=== PATIENT | female | born 1995 | race Caucasian/White ===

== ENCOUNTER 2018-10-03 14:41 | Inpatient (IN) | payer MEDICAID ==
[~2018-10-03] VITALS: Ht 157.5 cm; Wt 68.9 kg
[2018-10-03 14:49] VITALS: Ht 157.5 cm; Wt 68.9 kg
--- NOTE | 2018-10-03 16:40 | NUR ---
PT. IN ED WITH C/O LOWER ABDOMINAL PAIN AND NAUSEA X2DAYS. REPORTS PAIN IS WORSE WITH MOVEMENT AND WALKING. DENIES EMESIS OR FEVERS. REPORTS SHE WAS SEEN IN A HEALTH CLINIC EARLIER TODAY AND WAS TOLD TO COME TO ED FOR POSSIBLE APPENDICITIS. PT. AAOX4, TALKING AND RESPONDING APPROPRIETLY, SOME MODERATE ABDOMINAL PAIN WITH MOVEMENT. BOYFRIEND AT BEDSIDE. WILL CONTINUE TO MONITOR.
--- NOTE | 2018-10-03 17:03 | NUR ---
AT BEDSIDE WITH DR. ROGERS TO [facility] FLOOR INSTALLER PELVIC EXAM.
[2018-10-03 17:14] LABS: BASOPHIL % 0.3 % (0-2); PLATELET COUNT 273 x10^3mcL (130-400)
[2018-10-03 17:16] LABS: CARBON DIOXIDE 23.7 mmol/L (21-32); CHLORIDE SERUM 104 mmol/L (98-107); CREATININE SERUM 0.7 mg/dL (0.6-1.0); GFR1 > 60 mL/min; GLUCOSE SERUM 92 mg/dL (74-106); POTASSIUM SERUM 3.6 mmol/L (3.5-5.1); SODIUM SERUM 141 mmol/L (136-145)
[2018-10-03 17:20] LABS: ALBUMIN 4.1 g/dL (3.4-5.0); ALKALINE PHOSPHATASE 84 U/L (46-116); ALT/SGPT 38 U/L (14-59); AST/SGOT 30 U/L (15-37); BILIRUBIN TOTAL 0.5 mg/dL (0.20-1.00); LIPASE 137 IU/L (73-393); TOTAL PROTEIN, SERUM 7.9 g/dL (6.4-8.2)
[2018-10-03 17:37] LABS: RED CELL DISTRIBUTION WIDTH 16.9 % (11.5-14.5)
--- NOTE | 2018-10-03 17:44 | NUR ---
PT. TAKEN TO XRAY DEPARTMENT BY
--- NOTE | 2018-10-03 18:01 | NUR ---
PT. BACK FROM CT. AAOX4, TALKING AND RESPONDNG APPROPRIETLY. NOT IN ANY APPARENT DISTRESS AT THIS TIME. CALL LIGHT IN REACH. BOYFRIEND AT BEDSIDE.
--- NOTE | 2018-10-03 18:53 | NUR ---
PT. AAOX4, SITTING UP TALKING WITH MOM. REPROTS LOWER ABD PAIN 3/10 THAT IS WORSE WITH MOVEMENT. NOT IN ANY APPARENT DISTRESS AT THIS TIME. CALL LIGHT IN REACH. WILL CONTINUE TO MONITOR.
--- NOTE | 2018-10-03 18:58 | NUR ---
PT. TO ULTRASOUND WITH TECH.
--- NOTE | 2018-10-03 19:05 | NUR ---
REPORT RECIEVED FROM RUPERTO DIXON. PT OFF THE FLOOR FOR US.
--- NOTE | 2018-10-03 20:17 | NUR ---
REPORT GIVEN TO JAN TO ASSUME CARE OF PT.
[2018-10-03 20:20] LABS: T3 TOTAL 1.05 ng/mL
--- NOTE | 2018-10-03 20:25 | NUR ---
RECEIVED PT FROM ED [facility]IA [facility], CAME IN DUE TO PELVIC PAIN. AAOX4. DENIES HEADACHE/DIZZINESS. NO SOB NOTED, LUNG SOUNDS CTA. DENIES CHEST PAIN/PRESSURE, SB=024. DENIES ABDOMINAL DISCOMFORT. BOWEL SOUNDS ACTIVE. STATED THAT SHE HAS 8/10 SHARP PELVIC PAIN. DENIES BURNING SENSATION ON URINATION. VOIDS. IV SITE ON THE LAC IS PATENT AND INTACT. SIDE RAILS UPX2. CALL LIGHT ON REACH. FAMILY AT BEDSIDE. ENDORSED TO PRIMARY NURSE JAN FOR CONTINUITY OF CARE
[2018-10-03 20:36] LABS: FREE T4 0.99 ng/dL (0.76-1.46); FREE THYROXINE INDEX 2.9 ug/dL (1.4-4.5); T4(THYROXINE) 8.4 ug/dL (4.7-13.3)
[2018-10-03 20:43] VITALS: BP 135/84
[2018-10-03 20:58] LABS: PHOSPHOROUS 3.7 mg/dL (2.5-4.9)
--- NOTE | 2018-10-03 22:39 | NUR ---
PT C/O LOWER ABD PAIN 05/15, WILL MEDICATE PT WITH NORCO 7.5/325MG PO.
--- NOTE | 2018-10-04 03:41 | NUR ---
PT'S IN BED WITH EYES CLOSED , PIV INTACT INFUSING WELL .
[2018-10-04 04:49] VITALS: BP 113/66
[2018-10-04 06:23] LABS: CARBON DIOXIDE 22.2 mmol/L (21-32); CHLORIDE SERUM 110 mmol/L (98-107); CREATININE SERUM 0.6 mg/dL (0.6-1.0); GFR1 > 60 mL/min; GLUCOSE SERUM 80 mg/dL (74-106); POTASSIUM SERUM 3.9 mmol/L (3.5-5.1); SODIUM SERUM 142 mmol/L (136-145)
--- NOTE | 2018-10-04 06:27 | NUR ---
NO CHANGES OF CONDITION NOTED, ALL DUE MEDS GIVEN NO REACTION NOTED, PT'S AWAKE DENY ABD PAIN AT THE MOMENT, PIV INTACT INFUSING WELL ,
[2018-10-04 06:42] LABS: BASOPHIL % 0.3 % (0-2); PLATELET COUNT 194 x10^3mcL (130-400)
--- NOTE | 2018-10-04 07:30 | NUR ---
RECEIVED PATIENT IN BED, AWAKE, ALERT AND ORIENTED. IVF INFUSING WELL TO LEFT A/C. RESP EVEN AND UNLABORED, LUNGS CLEAR ON ROOM AIR. OCCASIONAL MOIST COUGH NOTED. PER PATIENT SHE DOES NOT HAVE ANY PAIN LONG SHE IS IN BED LYING FLAT, AND WHEN SHE IS UP OOB, RT LOWER ABD PAIN IS MINIMAL AND TOLERABLE PER PATIENT. NO EDEMA NOTED. VOIDING WELL, LBM YESTERDAY PER PATIENT. WILL CONTINUE TO MONITOR. BED IN LOW POSITION AND LOCKED.
[2018-10-04 07:40] LABS: RED CELL DISTRIBUTION WIDTH 17.3 % (11.5-14.5)
[2018-10-04 08:35] VITALS: BP 111/71
--- NOTE | 2018-10-04 09:11 | NUR ---
PATIENT SITTING UP IN BED WITH VISITOR AT BEDSIDE. C/O H/A 3/10 ON THE PAIN SCALE. MEDICATED WITH TYLENOL AT THIS TIME. WILL MONITOR FOR EFFECT.
[2018-10-04 09:37] LABS: BASOPHIL % 0.8 % (0-2); PLATELET COUNT 178 x10^3mcL (130-400)
[2018-10-04 10:11] LABS: RED CELL DISTRIBUTION WIDTH 16.9 % (11.5-14.5)
--- NOTE | 2018-10-04 13:51 | NUR ---
PATIENT IS IN BED WITH FAMILY MEMBERS AT BEDSIDE. NPO ORDERED. IVF INFUSING WELL, SITE PATENT. DENIES ANY H/A AT THIS TIME. WILL CONTINUE TO MONITOR.
[2018-10-04 14:16] LABS: BASOPHIL % 0.2 % (0-2); PLATELET COUNT 193 x10^3mcL (130-400)
[2018-10-04 14:17] LABS: RED CELL DISTRIBUTION WIDTH 17.1 % (11.5-14.5)
--- NOTE | 2018-10-04 14:17 | NUR ---
PATIENT'S PLAN OF CARE WAS DISCUSSED AND REVIEWED WITH OLDER ADULT SOCIAL WORK SPECIALIST:RANJITH VARGAS. I HAVE REVIEWED THE DATA COLLECTION BY OLDER ADULT SOCIAL WORK SPECIALIST (NAME):RAJNITH VARGAS. ENTERED ON (DATE/TIME):10/04/18 I CONCUR WITH THE DATA AND ANY EXCEPTIONS OR COMMENTS ARE LISTED BELOW:
--- NOTE | 2018-10-04 14:52 | NUR ---
APPEARS TO BE RESTING WELL. IVF INFUSING WELL AT 10ML/HR ORDERED. NO FURTHER C/O H/A OR ABD PAIN AT THIS TIME. WILL CONTINUE TO MONITOR.
[2018-10-04 15:27] LABS: rbc morphology (normal/abnorm) ABNORMAL (NORMAL)
[2018-10-04 15:28] LABS: ovalocyte/elliptocyte 3+; tear drop cell (dacryocyte) 1+
[2018-10-04 16:35] VITALS: BP 126/78
--- NOTE | 2018-10-04 17:43 | NUR ---
PATIENT SITTIING UP IN BED WITH VISITORS AT BEDSIDE. AWAITING CONSULT WITH DR Migel SHAH. REMAINS NPO AT THIS TIME. PER PATIENT SHE HAS OCCASIONAL RT LOWER ABD CRAMPING. NO VAGINAL BLEEDING. PATIENT REMINDED OF THE NEED FOR URINE SPECIMEN. NO ACUTE DISTRESS NOTED. WILL CONTINUE TO MONITOR.
--- NOTE | 2018-10-04 18:12 | NUR ---
DR Virgen SHAH INTO SEE PATIENT AT THIS TIME. DIET ORDER RECEIVED.
--- NOTE | 2018-10-04 19:41 | NUR ---
RECEIVED PT IN BED AAOX4 NO ACUTE DISTRESS NOTED , PT DENY ABD PAIN AT THE MOMENT , ABD SOFT BS ACTIVE X4, LAST BM WAS TODAY , LUNG SOUNDS CTA , PIV INTACT INFUSING WELL , CALL LIGHT WITHIN PT'S REACH , WILL CON'T TO MONITOR PT .
[2018-10-04 21:05] LABS: microscopic required? NO
[2018-10-04 22:35] LABS: UA SPECIFIC GRAVITY >=1.030 (1.005-1.035); urine erythrocyte NEGATIVE (NEGATIVE)
[2018-10-04 22:55] VITALS: BP 105/63
[2018-10-05 05:16] VITALS: BP 112/69
--- NOTE | 2018-10-05 06:40 | NUR ---
NO CHANGES OF CONDITION NOTED, ALL DUE MEDS GIVEN NO REACTION NOTED, PIV INTACT INFUSING WELL , CALL LIGHT WITHIN PT'S REACH , WILL CONM'T TO MONITOR PT CLOSELY.
[2018-10-05 07:01] LABS: BASOPHIL % 0.5 % (0-2); PLATELET COUNT 175 x10^3mcL (130-400)
[2018-10-05 07:02] LABS: RED CELL DISTRIBUTION WIDTH 16.8 % (11.5-14.5)
[2018-10-05 07:03] LABS: rbc morphology (normal/abnorm) ABNORMAL (NORMAL)
[2018-10-05 07:13] LABS: CARBON DIOXIDE 23.7 mmol/L (21-32); CHLORIDE SERUM 107 mmol/L (98-107); CREATININE SERUM 0.6 mg/dL (0.6-1.0); GFR1 > 60 mL/min; GLUCOSE SERUM 77 mg/dL (74-106); MAGNESIUM 1.9 mg/dL (1.8-2.4); PHOSPHOROUS 3.6 mg/dL (2.5-4.9); SODIUM SERUM 138 mmol/L (136-145)
--- NOTE | 2018-10-05 07:35 | NUR ---
PT AAOX4. FOLLOWS COMMANDS. DENIES H/A AND DIZZINESS. NORMAL S1 S2 NOTED. RESP EVEN AND UNLABORED. LUNG SOUNDS CTA. ON R/A. ABDOMEN SOFT, TENDER, NONDISTENDED. SKIN CDI. PERIPHERAL PULSES PALPABLE. NO EDEMA NOTED. IV CATH TO LAC PATENT, NO S/S OF INFECTION OR INFILTRATION NOTED. DENIES PAIN AT THIS TIME. FRIEND AT BEDSIDE. CALL LIGHT WITHIN REACH.
[2018-10-05 09:00] VITALS: BP 109/69
--- NOTE | 2018-10-05 09:29 | NUR ---
DUE MEDS GIVEN. DENIES PAIN OR DISCOMFORT AT THIS TIME. NO DISTRESS NOTED. CALL LIGHT WITHIN REACH. FRIEND IN ROOM VISITING.
--- NOTE | 2018-10-05 09:50 | NUR ---
DUE MEDS GIVEN. PT DENIES PAIN OR DISCOMFORT. VERBAL EDUCATION GIVEN ON ANEMIA. PT VERBALIZED UNDERSTANDING. FLUIDS ENCOURAGED. NO DISTRESS NOTED. CALL LIGHT WITHIN REACH. FRIEND AT BEDSIDE.
--- NOTE | 2018-10-05 10:22 | NUR ---
DR. LIU AND MEDICAL TEAM MET WITH PT AND DISCUSSED POC. PT WILL BE DISCHAGED TODAY WITH TYLENOL PRESCRIBED FOR PAIN. PT WILL RECEIVE OFF WORK NOTE. PT AGREED WITH POC.
--- NOTE | 2018-10-05 11:37 | NUR ---
PT IS AWAKE IN BED. DENIES PAIN OR DISCOMFORT. NO DISTRESS NOTED. FRIEND AT BEDSIDE. CALL LIGHT WITHIN REACH.
[2018-10-05] MEDS ORDERED: FERROUS SULFAT325 M2 PO (15:09)
[2018-10-05] MEDS ORDERED: TYLENOL ARTHRI650 MG PO (15:14)
[2018-10-05 16:03] VITALS: BP 109/69
--- NOTE | 2018-10-05 17:01 | NUR ---
PT HAD DISCHARGED IN NO DISTRESS. D/C INSTRUCTIONS REVIEWED. ALL FORMS SIGNED. RX GIVEN TO PT. IV CATH TO LAC REMOVED INTACT. SITE WNL. VS: 99.0, 90, 18, 109/69, 98% ON R/A. ALL PERSONAL BELONGINGS TAKEN HOME.
== END 2018-10-05 16:58 | disposition home or self-care (01) | DRG 248 ==
LOC: ED 14:41 → MU 18:59
PROVIDERS: Emergency Medicine; ADMIT Internal Medicine
DX: K65.9 Peritonitis, unspecified (principal); D62 Acute posthemorrhagic anemia; N83.201 Unspecified ovarian cyst, right side; Z68.27 Body mass index [BMI] 27.0-27.9, adult; Z97.5 Presence of (intrauterine) contraceptive device
CPT/HCPCS: 83880; 84439; 90658; J1885; J2270; J2405; J7030; Q9967